=== PATIENT | male | born 1995 | race African-American/Black ===

== ENCOUNTER → 2018-08-03 01:05 | Emergency (ER) | payer BC ==
[~2018-08-03 01:05] MED LIST: Clotrimazole 1% CREAM* 30 GM TOPICAL ONE; Clotrimazole 1% CREAM* 30 GM TOPICAL SCH
--- NOTE | 2018-08-03 01:48 | ED ---
Skin Complaint - HPI Summary HPI Summary: The patient is a 22 year old male who is presenting to the [facility] with a chief complaint of a rash. The patient describes the rash as red and over the scrotum. He denies any pain from the area as well as any form of discharge. The onset of the rash was 1 to 1.5 weeks ago. The patient also denies any urinary symptoms including burning when urinating. The symptoms have been improving according to the patient. The pain is rated to be 0/10 in severity. The symptoms are aggravated by nothing. The symptoms are alleviated by nothing. - History of Current Complaint Chief Complaint: EDUrogenitalProblems Time Seen by Provider: 08/03/18 01:24 Stated Complaint: RASH PER PT. Hx Obtained From: Patient Onset/Duration: Started Weeks Ago - 1 to 1.5 weeks Timing: Constant Current Severity: None Pain Intensity: 0 Pain Scale Used: 0-10 Numeric Skin Location: Other: - Scrotum Character: Redness Aggravating Symptom(s): Nothing Alleviating Symptom(s): Nothing Associated Signs & Symptoms: Negative - Allergy/Home Medications Allergies/Adverse Reactions: Allergies Allergy/AdvReac Type Severity Reaction Status Date / Time No Known Allergies Allergy Verified 08/03/18 01:16 Home Medications: Home Medications NK [No Home Medications Reported] 08/03/18 [History Confirmed 08/03/18] PMH/Surg Hx/FS Hx/Imm Hx Sensory History: Denies: Hx Deafness Opthamlomology History: Denies: Hx Legally Blind EENT History: Denies: Hx Deafness Infectious Disease History: No Infectious Disease History: Denies: Traveled Outside the [place] in Last 30 Days - Family History Known Family History: Positive: Non-Contributory Family History: Reviewed and Noncontributory - Social History Occupation: Student Lives: Dormitory/Roommates Alcohol Use: Occasionally Substance Use Type: Reports: None Smoking Status (MU): Never Smoked Tobacco Review of Systems Constitutional: Negative Eyes: Negative ENT: Negative Cardiovascular: Negative Respiratory: Negative Gastrointestinal: Negative Positive: no symptoms reported. Negative: burning, discharge Musculoskeletal: Negative Positive: Rash - Redness; Negative pain Neurological: Negative Psychological: Normal All Other Systems Reviewed And Are Negative: Yes Physical Exam - Summary Physical Exam Summary: VITAL SIGNS: Reviewed. GENERAL: Patient is a well-developed and nourished (MALE) who is lying comfortable in the stretcher. Patient is not in any acute respiratory distress. HEAD AND FACE: No signs of trauma. No ecchymosis, hematomas or skull depressions. No sinus tenderness. EYES: PERRLA, EOMI x 2, No injected conjunctiva, no nystagmus. EARS: Hearing grossly intact. Ear canals and tympanic membranes are within normal limits. MOUTH: Oropharynx within normal limits. NECK: Supple, trachea is midline, no adenopathy, no JVD, no carotid bruit, no c- spine tenderness, neck with full ROM. CHEST: Symmetric, no tenderness at palpation LUNGS: Clear to auscultation bilaterally. No wheezing or crackles. CVS: Regular rate and rhythm, S1 and S2 present, no murmurs or gallops appreciated. ABDOMEN: Soft, non-tender. No signs of distention. No rebound no guarding, and no masses palpated. Bowel sounds are normal. EXTREMITIES: FROM in all major joints, no edema, no cyanosis or clubbing. NEURO: Alert and oriented x 3. No acute neurological deficits. Speech is normal and follows commands. SKIN: Moist diffuse rash over his scrotum consistent with fungal infection Triage Information Reviewed: Yes Vital Signs On Initial Exam: Initial Vitals Temp Pulse Resp BP Pulse Ox 98.3 F 63 18 134/90 97 08/03/18 01:10 08/03/18 01:10 08/03/18 01:10 08/03/18 01:10 08/03/18 01:10 Vital Signs Reviewed: Yes Diagnostics - Vital Signs Vital Signs Temp Pulse Resp BP Pulse Ox 08/03/18 01:10 98.3 F 63 18 134/90 97 - Laboratory Lab Statement: Any lab studies that have been ordered have been reviewed, and results considered in the medical decision making process. Course/Dx - Course Course Of Treatment: The patient is a 22 year old male who is presenting to the [facility] with a chief complaint of a rash over his scrotum. The patient denies any urinary symptoms including burning and discharge. The rash is also stated to be improving, and there is no pain at this time. Physical exam findings revealed that the rash is consistent with a fungal infection. We discussed using Lotrimin cream twice a day and making sure undergarment are dry and clean. We recommended that he allows air to come in contact with the area and to support the area with good hygeine as well as to keep the area under a dry environment. The patient was agreeable to this plan and will be discharged home. The dx will be fungal infection. - Diagnoses Provider Diagnoses: Fungal infection Discharge - Sign-Out/Discharge Documenting (check all that apply): Patient Departure - Discharge Home Patient Received Moderate/Deep Sedation with Procedure: No - Discharge Plan Condition: Stable Disposition: HOME Patient Education Materials: Yeast Infection (ED) Referrals: No Primary Care Phys,NOPCP [Primary Care Provider] - Additional Instructions: Use Lotramin cream twice a day RETURN TO THE EMERGENCY DEPARTMENT FOR CHANGING OR WORSENING SYMPTOMS. FOLLOW UP WITH YOUR PRIMARY CARE PROVIDER WITHIN ONE WEEK - Billing Disposition and Condition Condition: STABLE Disposition: Home - Attestation Statements Document Initiated by Tabatha: Yes Documenting Scribe: Diego Maddox Provider For Whom Tabatha is Documenting (Include Credential): Dr. Kadi Crawleyibmalorie Attestation: iDego Campos scribed for Dr. Claritza Cassidy on 08/03/18 at 0659. Scribe Documentation Reviewed: Yes Provider Attestation: The documentation as recorded by the Diego chavis accurately reflects the service I personally performed and the decisions made by Dr. Kadi cruz Status of Scribmalorie Document: Viewed
[2018-08-03 01:58] VITALS: BP 0/0
== END | disposition home or self-care (01) ==
LOC: ED 01:05
DX: B35.6 Tinea cruris (principal)
CPT/HCPCS: 36415; 86703; 99282

== ENCOUNTER 2019-01-08 23:48 | Emergency (ER) | payer BC ==
--- NOTE | 2019-01-09 00:51 | ED ---
Skin Complaint - HPI Summary HPI Summary: 23 year old M presenting to [facility] complains of rash in his groin area from a jock strap since 2-3 days ago. Patient states it is uncomfortable but denies pain. Patient denies fever, chills, rashes anywhere else, discharge from penis. The patient rates the pain 0/10 in severity. Symptoms aggravated by nothing. Symptoms alleviated by nothing. Patient states he had a similar episode a few months ago, was seen in the ED, and given a prescription for a cream. Patient states he shaves his groin area. Patient states he hasn't been working out recently. 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 Medications reviewed. Allergies noted. - History of Current Complaint Chief Complaint: EDRashSkinAbscess Time Seen by Provider: 01/09/19 00:33 Stated Complaint: RASH PER PT Hx Obtained From: Patient Onset/Duration: Started Days Ago - 2-3, Still Present Timing: Constant Current Severity: None Pain Intensity: 0 Pain Scale Used: 0-10 Numeric Aggravating Symptom(s): Nothing Alleviating Symptom(s): Nothing Associated Signs & Symptoms: Negative - fever, chills, rashes anywhere else, discharge from penis - Allergy/Home Medications Allergies/Adverse Reactions: Allergies Allergy/AdvReac Type Severity Reaction Status Date / Time No Known Allergies Allergy Verified 01/09/19 00:35 PMH/Surg Hx/FS Hx/Imm Hx Respiratory History: Denies: Hx Asthma Sensory History: Denies: Hx Legally Blind, Hx Deafness Opthamlomology History: Denies: Hx Legally Blind - Surgical History Surgery Procedure, Year, and Place: none Infectious Disease History: No Infectious Disease History: Denies: Traveled Outside the [place] in Last 30 Days - Family History Known Family History: Negative: Diabetes - Social History Alcohol Use: Occasionally Hx Substance Use: Yes Substance Use Type: Reports: Marijuana Hx Tobacco Use: No Smoking Status (MU): Never Smoked Tobacco Review of Systems Negative: Fever, Chills Negative: discharge Positive: Rash - rash in his groin area All Other Systems Reviewed And Are Negative: Yes Physical Exam - Summary Physical Exam Summary: Constitutional: Well-developed, Well-nourished, Alert. (-) Distressed Skin: Warm, Dry HENT: Normocephalic; Atraumatic Eyes: Conjunctiva normal Neck: Musculoskeletal ROM normal neck. (-) JVD, (-) Stridor, (-) Tracheal deviation Cardio: Rhythm regular, rate normal, Heart sounds normal; Intact distal pulses; The pedal pulses are 2+ and symmetric. Radial pulses are 2+ and symmetric. (-) Murmur Pulmonary/Chest wall: Effort normal. (-) Respiratory distress, (-) Wheezes, (-) Rales Abd: Soft, (-) tenderness, (-) Distension, (-) Guarding, (-) Rebound Musculoskeletal: (-) Edema Lymph: (-) Cervical adenopathy Neuro: Alert, Oriented x3 Psych: Mood and affect Normal Genital exam: There is a rash to base of penis that is erythematous. No warmth, no tend, no induration, no fluctuance Triage Information Reviewed: Yes Vital Signs On Initial Exam: Initial Vitals Temp Pulse Resp BP Pulse Ox 98.3 F 67 18 111/95 98 01/08/19 23:50 01/08/19 23:50 01/08/19 23:50 01/08/19 23:50 01/08/19 23:50 Vital Signs Reviewed: Yes Diagnostics - Vital Signs Vital Signs Temp Pulse Resp BP Pulse Ox 01/08/19 23:50 98.3 F 67 18 111/95 98 - Laboratory Lab Statement: Any lab studies that have been ordered have been reviewed, and results considered in the medical decision making process. Course/Dx - Course Course Of Treatment: Patient is here with a rash consistent with jock itch. Patient was given a tube of clotrimazole cream here. Patient is educated on basic hygiene. - Diagnoses Provider Diagnoses: Jock itch Discharge ED - Sign-Out/Discharge Documenting (check all that apply): Patient Departure - Discharge Patient Received Moderate/Deep Sedation with Procedure: No - Discharge Plan Condition: Stable Disposition: HOME Prescriptions: Clotrimazole 1% CREAM* [Clotrimazole 1%*] 1 applic TOPICAL DAILY 14 Days #1 tube Patient Education Materials: Jock Itch (ED) Referrals: [facility] @ [Outside] - 1 Day Additional Instructions: Please follow up with [facility]. Please make all follow-ups in 1-3 days unless I advise you otherwise. PLEASE RETURN TO EMERGENCY DEPARTMENT FOR ANY NEW OR WORSENING SYMPTOMS. - Billing Disposition and Condition Condition: STABLE Disposition: Home - Attestation Statements Document Initiated by Scribe: Yes Documenting Scribe: Sarika Draper Provider For Whom Scribe is Documenting (Include Credential): Severino Agarwal MD Scribe Attestation: ISarika, scribed for Severino Agarwal MD on 01/09/19 at 0351. Scribe Documentation Reviewed: Yes Provider Attestation: The documentation as recorded by the Sarika chavis accurately reflects the service I personally performed and the decisions made by me, Severino Agarwal MD Status of Scribe Document: Viewed
[2019-01-09] MEDS ORDERED: Clotrimazole 1% CREAM* 30 GM TOPICAL ONE (00:56)
[2019-01-09 01:13] VITALS: BP 119/76
== END 2019-01-09 01:07 | disposition home or self-care (01) ==
LOC: ED 23:48
DX: B35.6 Tinea cruris (principal)
CPT/HCPCS: 99282